=== PATIENT | male | born 1955 | race Caucasian/White ===

== ENCOUNTER → 2023-08-27 06:24 | Day surgery (SDC) | payer OTHER, SELFPAY | LOC: GI 06:24 | PROVIDERS: ATTENDING PHYSICIAN Internal Medicine Gastroenterology; FAMILY PHYSICIAN Registered Nurse | DX: Z12.11 Encounter for screening for malignant neoplasm of colon (principal); D12.2 Benign neoplasm of ascending colon; K57.30 Diverticulosis of large intestine without perforation or abscess without bleeding; K64.8 Other hemorrhoids; Z86.010 Personal history of colon polyps | CPT/HCPCS: 45385; 88305 ==

== ENCOUNTER → 2023-11-13 15:40 | Outpatient (REF) | payer OTHER, SELFPAY | LOC: RCS 15:40 | PROVIDERS: ATTENDING PHYSICIAN Internal Medicine Cardiovascular Disease; FAMILY PHYSICIAN Registered Nurse | DX: I48.21 Permanent atrial fibrillation (principal); I45.10 Unspecified right bundle-branch block; I10 Essential (primary) hypertension | CPT/HCPCS: 93306 ==

== ENCOUNTER → 2024-04-30 10:59 | Outpatient (REF) | payer OTHER, SELFPAY | LOC: RAD 10:59 | PROVIDERS: ATTENDING PHYSICIAN Surgery; FAMILY PHYSICIAN Registered Nurse | DX: D49.4 Neoplasm of unspecified behavior of bladder (principal) | CPT/HCPCS: 74178; Q9967 ==

== ENCOUNTER 2024-05-03 06:26 | Day surgery (SDC) | payer OTHER, SELFPAY ==
[2024-05-03] VITALS (13 sets, daily range): BP systolic 95–148; BP diastolic 63–89; BMI 29.4
[2024-05-03 11:54] LABS: Glucose - Point of Care 140 mg/dl (70-99)
[2024-05-03] MEDS: NORMOSOL-R/PLASMALYTE-A 1000 IV (11:57)
[2024-05-03] MEDS: CYSVIEW KIT 100 MG INTRAVES (11:58)
[2024-05-03] MEDS: Pyridium 200 MG PO (13:58)
[2024-05-03] MEDS: DETROL LA 4 MG PO (13:58)
[2024-05-03] MEDS: SYRINGE NON-PUMP 50 MG IRRIG ×2 (14:18→14:22)
[2024-05-03] MEDS: SYRINGE NON-PUMP 50 ML IRRIG ×2 (14:18→14:22)
== END 2024-05-03 16:50 | disposition home or self-care (01) ==
LOC: SDS 06:26
PROVIDERS: ATTENDING PHYSICIAN Surgery
DX: C67.2 Malignant neoplasm of lateral wall of bladder (principal); N40.0 Benign prostatic hyperplasia without lower urinary tract symptoms
CPT/HCPCS: 52235; 51720; C9738; 88307; 82962; A9589; J9201